=== PATIENT | female | born 1995 | race Caucasian/White ===

== ENCOUNTER 2022-10-26 17:57 | Emergency (ER) | payer BC, MEDICAID, SELFPAY ==
[2022-10-26 18:04] VITALS: BP 122/81; PULSE 86; RESP 16; TEMP 36.7; O2SAT 98; BMI 29.0
[2022-10-26 18:44] LABS: Basophils % 0.3 %; Eosinophils # 0.2 10^3/uL (0.0-0.8); Eosinophils % 1.5 %; Hematocrit 37.2 % (37.0-47.0); Hemoglobin 13.2 g/dL (11.5-15.3); Lymphocytes # 2.6 10^3/uL (0.8-4.8); Lymphocytes % 21.8 %; Mean Corpuscular HGB Conc 35.5 g/dL (30.0-36.0); Mean Corpuscular Hemoglobin 31.3 pg (28.0-34.0); Mean Corpuscular Volume 88.2 fl (81-99); Mean Platelet Volume 10.8 fL (7.4-10.4); Monocytes # 0.7 10^3/uL (0.2-0.9); Monocytes % 5.7 %; Neutrophils # 8.47 10^3/uL (1.8-7.7); Neutrophils % 70.4 %; Nucleated Red Blood Cells % 0 %; Platelet Count 176 10^3/cmm (130-400); Red Blood Count 4.22 10^6/uL (4.1-5.3); Red Cell Distribution Width 12.6 % (12.1-15.1); White Blood Count 12.1 10^3/uL (4.0-10.0)
--- NOTE | 2022-10-26 18:48 | USR_ITS ---
PROCEDURE INFORMATION: Exam: US Abdomen, Limited; Right Upper Quadrant Exam date and time: 10/26/2022 7:12 PM Age: 27 years old Clinical indication: Abdominal pain; Epigastric; Additional info: Abd pain TECHNIQUE: Imaging protocol: Real time ultrasound of the abdomen with image documentation. Limited exam focused on the right upper quadrant. COMPARISON: No relevant prior studies available. FINDINGS: Liver: Unremarkable. Gallbladder: Cholelithiasis and mild gallbladder wall thickening. No pericholecystic fluid. Negative sonographic Ewing's sign, as per the performing point of care technician (patient sedated). Biliary ducts: Normal. No stones. No dilation. Pancreas: Unremarkable as visualized. Right kidney: No mass. No definite stones. No hydronephrosis. US/US gall bladder [id number] IMPRESSION: Cholelithiasis and mild gallbladder wall thickening. If clinically indicated, HIDA scan would provide a more sensitive evaluation for acute gallbladder pathology.
[2022-10-26 19:00] LABS: Alanine Aminotransferase 27 U/L (0-33); Alkaline Phosphatase 66 U/L (35-105); Anion Gap 14.8 (5-19); Aspartate Amino Transferase 26 U/L (0-32); Blood Urea Nitrogen 8 mg/dL (6-20); Calcium 9.3 mg/dL (8.5-10.5); Carbon Dioxide 25 mmol/L (22-29); Chloride 102 mmol/L (98-107); Creatinine Clr Calc Pharmacy 191.4977; Globulin 2.7 g/dL (1.3-4.6); Glomerular Filtration Rate 150.3 mL/min (90-130); Glucose 91 mg/dL (65-115); Lipase 30 U/L (13-60); Osmolality Calculated 284 mOsm/kg (285-295); Potassium 3.8 mmol/L (3.5-5.1); Sodium 138 mmol/L (136-145); Total Bilirubin 0.2 mg/dL (0.15-1.2); Total Protein 6.7 g/dL (6.6-8.7)
[2022-10-26] MEDS: sodium chloride 0.9% 1,000 ML 999 ML IV (19:06)
[2022-10-26] MEDS: metoclopramide 5 mg/mL SDV 2 mL 10 MG IVP (19:07)
[2022-10-26] MEDS: diphenhydrAMINE 50 mg/mL SDV 1mL IVP (19:07)
[2022-10-26 19:08] LABS: Add Urine Microscopic? NO; Charge for UA Resulting for Rev
--- NOTE | 2022-10-26 19:09 | ED_ITS ---
HPI - Abdominal Pain General: Chief Complaint: Abdominal Pain Stated Complaint: 13 weeks preg. abd pain Time Seen by Provider: 10/26/22 18:18 Source: patient Mode of arrival: ambulatory Limitations: no limitations History of Present Illness: 27-year-old female who states she is currently 13 weeks states she been having upper abdominal cramping over the last few days. States that pain is a cramping pain she rates it a 6 out of 10 mainly in her epigastrium she does have a history of reflux she takes Nexium as needed. She denies any vomiting any diarrhea denies any vaginal bleeding denies any vaginal discharge denies any lower abdominal pain. Review of Systems GI: Reports: abdominal pain [facility] ED PFSH: Medical History (Updated 10/26/22 @ 20:35 by Mica Dickens MD) No pertinent past medical history Social History (Updated 10/26/22 @ 19:09 by Mica Dickens MD) Substance/Drug Use: never Physical Exam Const: COMMON NORMALS: no acute distress, patient oriented x3 and healthy appearing HENMT: COMMON NORMALS: normocephalic and atraumatic HEAD & SCALP: normocephalic and atraumatic Eye: COMMON NORMALS: Equal, round and reactive pupils present and EOMs intact bilaterally PUPIL: Yes Equal, round and reactive pupils present Neck/C-Spine: COMMON NORMALS: full ROM and supple Chest: COMMONS NORMALS: normal inspection of the chest and normal palpation of entire chest wall Resp: COMMON NORMALS: normal respiratory effort, No retractions, No use of accessory muscles and clear to auscultation bilaterally AUSCULTATION: clear to auscultation bilaterally Cardio: COMMON NORMALS: regular rate, regular rhythm and No murmurs present (Cardio) RATE: regular rate RHYTHM: regular rhythm GI: COMMON NORMALS: Normal to inspection, nondistended, normoactive bowel sounds present, Soft to palpation, non-tender and no masses PALPATION: Yes Soft to palpation Extremity: COMMON NORMALS: normal to inspection and full ROM Neuro: COMMON NORMALS: patient oriented x3, moves all extremities and no focal motor deficits Psych: COMMON NORMALS: mental status grossly normal, Normal thought process present and cooperative THOUGHT PROCESS: Normal thought process present Skin: COMMON NORMALS: no rashes or lesions noted and no wounds GENERAL SKIN EXAM: no rashes or lesions noted Course Vital Signs: Vital signs: Vital Signs Temperature 98.0 F 10/26/22 18:04 Pulse Rate 86 10/26/22 18:04 Respiratory Rate 16 10/26/22 18:04 Blood Pressure 122/81 10/26/22 18:04 Pulse Oximetry 98 10/26/22 18:04 Oxygen Delivery Me thod 10/26/22 18:04 MDM - Abdominal Pain Medical Decision Making Patient presents here with abdominal pain ultrasound does show cholelithiasis s he has no tenderness in her right upper quadrant is mildly elevated white count no signs of acute cholecystitis I did speak to surgeon on-call Dr. Cornell will place her on a week of Augmentin and get her follow-up with him she is to follow-up with her OB as well. I did a bedside ultrasound of her baby showed IUP consistent with dates with heart rates in the 150s. Lab Data 10/26/22 18:34 10/26/22 18:34 Labs/Radiology: Radiology Impressions Gallbladder Ultrasound 10/26/22 18:48 IMPRESSION: Cholelithiasis and mild gallbladder wall thickening. If clinically indicated, HIDA scan would provide a more sensitive evaluation for acute gallbladder pathology. Laboratory Results WBC 12.1 10^3/uL (4.0-10.0) H 10/26/22 18:34 RBC 4.22 10^6/uL (4.1-5.3) 10/26/22 18:34 Hgb 13.2 g/dL (11.5-15.3) 10/26/22 18:34 Hct 37.2 % (37.0-47.0) 10/26/22 18:34 MCV 88.2 fl (81-99) 10/26/22 18:34 MCH 31.3 pg (28.0-34.0) 10/26/22 18:34 MCHC 35.5 g/dL (30.0-36.0) 10/26/22 18:34 RDW 12.6 % (12.1-15.1) 10/26/22 18:34 Plt Count 176 10^3/cmm (130-400) 10/26/22 18:34 MPV 10.8 fL (7.4-10.4) H 10/26/22 18:34 Neut % (Auto) 70.4 % 10/26/22 18:34 Lymph % (Auto) 21.8 % 10/26/22 18:34 Lyman % (Auto) 5.7 % 10/26/22 18:34 Eos % (Auto) 1.5 % 10/26/22 18:34 Baso % (Auto) 0.3 % 10/26/22 18:34 Neut # (Auto) 8.47 10^3/uL (1.8-7.7) H 10/26/22 18:34 Lymph # (Auto) 2.6 10^3/uL (0.8-4.8) 10/26/22 18:34 Lyman # (Auto) 0.7 10^3/uL (0.2-0.9) 10/26/22 18:34 Eos # (Auto) 0.2 10^3/uL (0.0-0.8) 10/26/22 18:34 Baso # (Auto) 0.0 10^3/uL (0.0-0.1) 10/26/22 18:34 Nucleated RBC % (auto) 0 % 10/26/22 18:34 Nucleated RBCs # 0.0 /100WBC 10/26/22 18:34 Sodium 138 mmol/L (136-145) 10/26/22 18:34 Potassium 3.8 mmol/L (3.5-5.1) 10/26/22 18:34 Chloride 102 mmol/L (98-107) 10/26/22 18:34 Carbon Dioxide 25 mmol/L (22-29) 10/26/22 18:34 Anion Gap 14.8 (5-19) 10/26/22 18:34 BUN 8 mg/dL (6-20) 10/26/22 18:34 Creatinine 0.5 mg/dL (0.5-0.9) 10/26/22 18:34 GFR Calculation 150.3 mL/min (90-130) H 10/26/22 18:34 Glucose 91 mg/dL (65-115) 10/26/22 18:34 Calculated Osmolality 284 mOsm/kg (285-295) L 10/26/22 18:34 Calcium 9.3 mg/dL (8.5-10.5) 10/26/22 18:34 Total Bilirubin 0.2 mg/dL (0.15-1.2) 10/26/22 18:34 AST 26 U/L (0-32) 10/26/22 18:34 ALT 27 U/L (0-33) 10/26/22 18:34 Alkaline Phosphatase 66 U/L (35-105) 10/26/22 18:34 Total Protein 6.7 g/dL (6.6-8.7) 10/26/22 18:34 Albumin 4.0 g/dL (3.5-5.2) 10/26/22 18:34 Globulin 2.7 g/dL (1.3-4.6) 10/26/22 18:34 Lipase 30 U/L (13-60) 10/26/22 18:34 Urine Color Light yellow (Yellow) 10/26/22 18:55 Urine Appearance Clear (CLEAR) 10/26/22 18:55 Urine pH 6 (5-7) 10/26/22 18:55 Ur Specific Hudson 1.010 (1.005-1.030) 10/26/22 18:55 Urine Protein Neg (Negative) 10/26/22 18:55 Urine Glucose (UA) Norm (Normal) 10/26/22 18:55 Urine Ketones Negative (Negative) 10/26/22 18:55 Urine Blood Neg (Negative) 10/26/22 18:55 Urine Nitrate Negative (Negative) 10/26/22 18:55 Urine Bilirubin Neg (Negative) 10/26/22 18:55 Urine Urobilinogen Neg mg/dL (Negative) 10/26/22 18:55 Ur Leukocyte Esterase Negative (Negative) 10/26/22 18:55 Discharge Plan Discharge Patient Disposition: Home Clinical Impression: Cholelithiases Prescriptions: New Reglan 10 mg tablet 10 mg PO Q6H PRN (Reason: nausea and vomiting) Qty: 20 0RF Augmentin 500-125 mg tablet 1 tab PO BID Qty: 14 0RF Discharge Orders: Discharge ED (Routine); Ordered 10/26/22 Ordered By: Mica Dickens Referrals: Mao Cornell DO [Physician] - 1-3 days Javier Taveras FNP [Primary Care Provider] - Discharge Diet: Advance as tolerated Discharge Activity: Resume usual activity Patient Instructions: Gallstones (ED) Coding Level of Care Code ED [employer] [facility]
[2022-10-26 19:10] LABS: Bilirubin Urine Neg (Negative); Blood Urine Neg (Negative); Glucose Urine UA Norm (Normal); Ketones Urine Negative (Negative); Leukocyte Esterase Urine Negative (Negative); Nitrate Urine Negative (Negative); Protein Urine Neg (Negative); Urine Appearance Clear (CLEAR); Urine Color Light yellow (Yellow); Urobilinogen Urine Neg (Negative); pH Urine 6 (5-7)
[2022-10-26 20:47] VITALS: PULSE 80; RESP 16; O2SAT 99
--- NOTE | 2022-10-27 08:45 | DCPLANNER ---
Addendum entered by Rosa Yao 11/01/22 11:51: manager engine called [place] [facility] to confirm that paperwork was received by facility. manager engine was told that clinic had patients information and that a follow up appointment had been scheduled for patient. Addendum entered by Rosa Yao 10/29/22 11:25: manager engine received the following message from general surgery regarding follow up appointment: Due to patient having [facility], please refer elsewhere! Thank you manager engine spoke with patient and explained this, patient stated that she would like to be referred to [facility]. manager engine faxed patients information to [facility]. Patients information will be reviewed and clinic will call patient with appointment information. Original Note: manager engine had message to schedule a follow up appointment for patient with general surgery. manager engine sent patients information to the front office staff at general surgery. Patients information will be printed and reviewed. Clinic will call patient with appointment information.
== END 2022-10-26 20:49 | disposition home or self-care (01) ==
PROVIDERS: Emergency Provider Emergency Medicine; Family Provider Nurse Practitioner Family; PCP Nurse Practitioner Family
DX: O99.611 Diseases of the digestive system complicating pregnancy, first trimester (principal); K80.20 Calculus of gallbladder without cholecystitis without obstruction; Z3A.13 13 weeks gestation of pregnancy
CPT/HCPCS: 36415; 76705; 80053; 81003; 83690; 85025; 96361; 96374; 96375; 99285; J1200; J2765; J7030

== ENCOUNTER 2023-06-02 15:28 | Outpatient (CLI) | payer BC, MEDICAID, SELFPAY ==
--- NOTE | 2023-06-02 | USCV_ITS ---
Elvira Lincoln Age: 28 Gender: F : 1995 Exam Date: 06/02/2023 15:49 Ordering Phys: Jennifer Tripp Technologist: Reba Loredo Exam Location: [facility] Indication: Lump in Rt forarm post delivery of Baby on 04-22-23 HISTORY: Developed knot in Rt forearm post delivery on 04-22-23. It was painful and red. Now a knot is present mid anterior surface of rt forearm. PROCEDURES: Venous duplex imaging was performed in only the right upper extremity. The following venous structures were evaluated: internal jugular vein, subclavian vein, axillary vein, and brachial veins. In addition, the basilic vein, cephalic vein, radial vein, and ulnar vein. Serial compression, augmentation maneuvers, and spectral Doppler flow evaluation were performed. FINDINGS: Right cephalic vein contains thrombus, non compressible and no flow from about 7 cm superior to AC space to mid forearm. No other DVT or superficial thrombus seen in any other vessel examined. CONCLUSIONS Superficial thrombophlebitis is detected in the right cephalic vein. No DVT. Dr. Jana Hardwick DO (Electronically Signed) Final Date: 03 June 2023 07:46 S
== END 2023-06-02 15:29 | disposition home or self-care (01) ==
LOC: RAD 15:33
PROVIDERS: PCP Nurse Practitioner Family; Visit Provider Nurse Practitioner Family
DX: O87.0 Superficial thrombophlebitis in the puerperium (principal); M79.89 Other specified soft tissue disorders
CPT/HCPCS: 93971

== ENCOUNTER 2024-02-14 20:00 | Outpatient (CLI) | payer OTHER, SELFPAY | END 2024-02-14 20:01 | disposition home or self-care (01) | LOC: SLEEP 02-15 04:12 | PROVIDERS: PCP Nurse Practitioner Family; Visit Provider Nurse Practitioner Family | DX: G47.33 Obstructive sleep apnea (adult) (pediatric) (principal) | CPT/HCPCS: 95810 ==

== ENCOUNTER 2024-03-07 20:00 | Outpatient (CLI) | payer OTHER, SELFPAY | END 2024-03-07 20:01 | disposition home or self-care (01) | LOC: SLEEP 23:46 | PROVIDERS: PCP Nurse Practitioner Family; Visit Provider Nurse Practitioner Family | DX: G47.33 Obstructive sleep apnea (adult) (pediatric) (principal) | CPT/HCPCS: 95811 ==

== ENCOUNTER 2024-04-03 08:02 | Oncology outpatient (recurring) (ONCR) | payer OTHER, SELFPAY ==
[2024-04-03 09:04] LABS: Basophils # 0.1 10^3/uL (0.0-0.1); Basophils % 0.7 %; Eosinophils # 0.1 10^3/uL (0.0-0.8); Hematocrit 41.5 % (36-47); Lymphocytes # 2.2 10^3/uL (0.8-4.8); Lymphocytes % 31.6 %; Mean Corpuscular HGB Conc 35.4 g/dL (30-55); Mean Corpuscular Hemoglobin 31.1 pg (27-33); Mean Corpuscular Volume 87.7 fl (85-98); Monocytes # 0.5 10^3/uL (0.2-0.9); Monocytes % 7.4 %; Neutrophils # 4.04 10^3/uL (1.8-7.7); Neutrophils % 57.9 %; Nucleated Red Blood Cells % 0 %; Platelet Count 228 10^3/cmm (157-399); Red Blood Count 4.73 10^6/uL (3.85-5.65); Red Cell Distribution Width 11.9 % (12.1-15.1); White Blood Count 6.99 10^3/uL (3.29-11.43)
[2024-04-03 09:20] LABS: Alanine Aminotransferase 10 U/L (0-33); Albumin Level 4.3 g/dL (3.5-5.2); Alkaline Phosphatase 84 U/L (35-105); Aspartate Amino Transferase 16 U/L (0-32); Blood Urea Nitrogen 10 mg/dL (6-20); Calcium 8.7 mg/dL (8.5-10.5); Carbon Dioxide 22 mmol/L (22-29); Chloride 106 mmol/L (98-107); Creatinine Clr Calc Pharmacy 118.0343; Globulin 2.6 g/dL (1.3-4.6); Glomerular Filtration Rate 86.7 mL/min (90-130); Glucose 97 mg/dL (65-115); Osmolality Calculated 283 mOsm/kg (285-295); Sodium 137 mmol/L (136-145); Total Bilirubin 0.7 mg/dL (0.15-1.2); Total Protein 6.9 g/dL (6.6-8.7)
[2024-04-03 09:21] LABS: Lactate Dehydrogenase 201 U/L (135-214)
== END 2024-04-21 23:55 | disposition home or self-care (01) ==
PROVIDERS: PCP Nurse Practitioner Family; Visit Provider Internal Medicine Medical Oncology
DX: C43.59 Malignant melanoma of other part of trunk (principal); Z53.9 Procedure and treatment not carried out, unspecified reason
CPT/HCPCS: 36415; 80053; 83615; 85025; 99203

== ENCOUNTER → 2024-04-17 13:44 | Outpatient (BNVA) | payer OTHER, SELFPAY | PROVIDERS: PCP Nurse Practitioner Family; Referring Provider Nurse Practitioner Family; Visit Provider Nurse Practitioner Family | DX: D48.5 Neoplasm of uncertain behavior of skin (principal); D22.72 Melanocytic nevi of left lower limb, including hip; Z85.820 Personal history of malignant melanoma of skin; W89.1XXA Exposure to tanning bed, initial encounter | CPT/HCPCS: 11102; 99203 ==

== ENCOUNTER → 2024-10-03 13:38 | Outpatient (BNVA) | payer OTHER, SELFPAY | PROVIDERS: PCP Nurse Practitioner Family; Visit Provider Nurse Practitioner Family | DX: D22.5 Melanocytic nevi of trunk (principal); L70.0 Acne vulgaris; Z08 Encounter for follow-up examination after completed treatment for malignant neoplasm; Z85.820 Personal history of malignant melanoma of skin; Z12.83 Encounter for screening for malignant neoplasm of skin | CPT/HCPCS: 99213 ==

== ENCOUNTER 2024-10-17 11:08 | Oncology outpatient (recurring) (ONCR) | payer OTHER, SELFPAY ==
[2024-10-17 11:28] LABS: Basophils % 0.5 %; Eosinophils # 0.1 10^3/uL (0.0-0.8); Eosinophils % 1.1 %; Hematocrit 40.7 % (36-47); Lymphocytes # 2.2 10^3/uL (0.8-4.8); Lymphocytes % 29.5 %; Mean Corpuscular HGB Conc 34.9 g/dL (30-55); Mean Corpuscular Hemoglobin 31.3 pg (27-33); Mean Corpuscular Volume 89.8 fl (85-98); Monocytes # 0.5 10^3/uL (0.2-0.9); Monocytes % 6.1 %; Neutrophils # 4.76 10^3/uL (1.8-7.7); Neutrophils % 62.5 %; Nucleated Red Blood Cells % 0 %; Platelet Count 223 10^3/cmm (157-399); Red Blood Count 4.53 10^6/uL (3.85-5.65); Red Cell Distribution Width 12.1 % (12.1-15.1)
[2024-10-17 11:47] LABS: Alanine Aminotransferase 13 U/L (0-33); Albumin Level 4.2 g/dL (3.5-5.2); Alkaline Phosphatase 73 U/L (35-105); Anion Gap 12.1 (5-19); Aspartate Amino Transferase 14 U/L (0-32); Blood Urea Nitrogen 11 mg/dL (6-20); Calcium 8.9 mg/dL (8.5-10.5); Carbon Dioxide 25 mmol/L (22-29); Chloride 109 mmol/L (98-107); Creatinine Clr Calc Pharmacy 130.6013; Globulin 2.4 g/dL (1.3-4.6); Glomerular Filtration Rate 100.4 mL/min (90-130); Glucose 98 mg/dL (65-115); Lactate Dehydrogenase 148 U/L (135-214); Osmolality Calculated 293 mOsm/kg (285-295); Potassium 4.1 mmol/L (3.5-5.1); Sodium 142 mmol/L (136-145); Total Bilirubin 0.4 mg/dL (0.15-1.2); Total Protein 6.6 g/dL (6.6-8.7)
== END 2024-10-19 23:59 | disposition home or self-care (01) ==
PROVIDERS: Internal Medicine Medical Oncology; PCP Nurse Practitioner Family; Visit Provider Internal Medicine
DX: Z08 Encounter for follow-up examination after completed treatment for malignant neoplasm (principal); Z85.820 Personal history of malignant melanoma of skin; Z87.891 Personal history of nicotine dependence
CPT/HCPCS: 36415; 80053; 83615; 85025; 99213

== ENCOUNTER → 2025-07-26 09:35 | Outpatient (BNVA) | payer OTHER, SELFPAY | PROVIDERS: PCP Nurse Practitioner Family; Visit Provider Nurse Practitioner Family | DX: D22.5 Melanocytic nevi of trunk (principal); D22.22 Melanocytic nevi of left ear and external auricular canal; L85.8 Other specified epidermal thickening; Z08 Encounter for follow-up examination after completed treatment for malignant neoplasm; Z85.820 Personal history of malignant melanoma of skin; D48.5 Neoplasm of uncertain behavior of skin | CPT/HCPCS: 11102; 99213 ==